=== PATIENT | female | born 1945 | race Caucasian/White ===

== ENCOUNTER 2018-05-15 12:09 | Day surgery (SDC) | payer MEDICARE, BC ==
[~2018-05-15 12:09] MED LIST: NO HOME MEDS
[2018-05-15 12:10] VITALS: BP 147/82
[2018-05-15 13:30] VITALS: BP 143/98
[2018-05-15] MEDS ORDERED: MESSAGE TO NURSING PO ONE (13:30)
[2018-05-15 13:40] VITALS: BP 153/74
[2018-05-15 13:50] VITALS: BP 148/84
[2018-05-15 14:00] VITALS: BP 145/73
[2018-05-15 14:10] VITALS: BP 145/76
[2018-05-15] MEDS ORDERED: diatr meglu/diatrizoate 30ml oral sol.-(3 dose) bottle PO ONE (17:15)
== END 2018-05-15 14:30 | disposition home or self-care (01) ==
LOC: GI LAB 12:09
PROVIDERS: ATTEND Internal Medicine Gastroenterology
DX: K94.29 Other complications of gastrostomy (principal)
CPT/HCPCS: 43762; 74018; A6449; Q9963; B4088

== ENCOUNTER 2018-06-05 09:14 | Day surgery (SDC) | payer MEDICARE, BC ==
[2018-06-05 09:30] VITALS: BP 155/75
[2018-06-05] MEDS ORDERED: fentaNYL/PF 50MCG/1 ML 2ML syringe ONE (10:40)
[2018-06-05] MEDS ORDERED: MIDAZolam 5mg/5ml vial ONE (10:40)
[2018-06-05] MEDS ORDERED: LIDOcaine Viscous 15ml cup ONE (10:40)
[2018-06-05 11:15] VITALS: BP 142/78
[2018-06-05 11:25] VITALS: BP 147/91
[2018-06-05 11:35] VITALS: BP 138/90
[2018-06-05 11:45] VITALS: BP 141/81
== END 2018-06-05 12:29 | disposition home or self-care (01) ==
LOC: GI LAB 09:14
PROVIDERS: ATTEND Internal Medicine Gastroenterology
DX: K29.50 Unspecified chronic gastritis without bleeding (principal); K44.9 Diaphragmatic hernia without obstruction or gangrene; K21.9 Gastro-esophageal reflux disease without esophagitis
CPT/HCPCS: 43239; 99152; J2250; J3010; J7030; A4620